=== PATIENT | female | born 1955 | race Caucasian/White ===

== ENCOUNTER 2020-09-23 11:18 | Outpatient (CLI) | payer MEDICARE, SELFPAY ==
--- NOTE | 2020-09-23 11:32 | FL_ITS ---
WS: [id number] MODIFIED BARIUM SWALLOW HISTORY: Other dysphagia FLUOROSCOPY TIME: 1.8 minutes. Modified barium swallow was performed by the speech pathologist. Fluoroscopy was provided with the pa tient in a lateral projection. Multiple food consistencies were provided. Patient swallowed all food consistencies without difficulty. No aspiration or laryngeal penetration. Liquids and food consistencies moved through the esophagus normally. Barium tablet was swallowed with out difficulty. FL/FL barium swallow modifd [id number] IMPRESSION: Unremarkable modified swallowing exam. Please see speech therapist report also for recommendations.
== END 2020-09-23 11:19 | disposition home or self-care (01) ==
LOC: RAD 11:22
PROVIDERS: PCP Family Medicine; Visit Provider Family Medicine
DX: R13.10 Dysphagia, unspecified (principal)
CPT/HCPCS: 74230; 92611

== ENCOUNTER 2020-09-26 13:08 | Outpatient (CLI) | payer MEDICARE, SELFPAY ==
--- NOTE | 2020-09-26 13:17 | XR_ITS ---
WS: [id number] Bone mineral density performed on a [employer], 09/26/2020 Clinical data: POST MENOPAUSAL, OSTEOPOROSIS Findings: The first 4 lumbar vertebral bodies demonstrated the bone mineral density of 1.007 g/cm2 for a young adult T score of -1.4. Measurement of the left hip reveals a bone mineral density of 0.826 g/cm2 with a young adult T score of -1.4. Measurement of the right hip reveals the bone mineral density of 0.791 g/cm2 for young adult T score of -1.7. XR/XR DEXA axial skeleton* [id number] Impression: Osteopenia of the lumbar spine and both hips.
== END 2020-09-26 13:09 | disposition home or self-care (01) ==
LOC: RADWPI 13:12
PROVIDERS: PCP Family Medicine; Visit Provider Family Medicine
DX: Z78.0 Asymptomatic menopausal state (principal); M81.0 Age-related osteoporosis without current pathological fracture; M85.89 Other specified disorders of bone density and structure, multiple sites
CPT/HCPCS: 77080

== ENCOUNTER → 2022-02-10 07:32 | Outpatient (BNVA) | payer MEDICARE, SELFPAY | PROVIDERS: PCP Family Medicine; Visit Provider Family Medicine | DX: Z00.00 Encounter for general adult medical examination without abnormal findings (principal); E78.5 Hyperlipidemia, unspecified | CPT/HCPCS: 80053; 80061; 85025 ==

== ENCOUNTER 2022-03-24 20:57 | Emergency (ER) | payer MEDICARE, SELFPAY ==
[2022-03-24 21:11] VITALS: BP 157/92; PULSE 85; RESP 16; TEMP 36.7; O2SAT 95; BMI 27.9
--- NOTE | 2022-03-24 21:27 | W.ED.ABDPA2 ---
HPI - Abdominal Pain General: Chief Complaint: Abdominal Pain Stated Complaint: dry heaving, stomach bloating Time Seen by Provider: 03/24/22 21:20 Source: patient Mode of arrival: ambulatory Limitations: no limitations History of Present Illness: 66-year-old female who states that she has been having abdominal pain along with nausea and diarrhea since Tuesday. States she had dry heaving she has had abdominal cramping states she does have some diffuse pain that is a cramping type pain she denies any worsening improving factors states she has had a decreased appetite. Associated Symptoms: Reports nausea; Denies chills, diarrhea, dysuria, fever(s) and vomiting Review of Systems Const: Denies: fever(s), chills, body aches or change in appetite Eyes: Denies: blurry vision or eye discomfort ENMT: Denies: throat pain or dental pain Card: Denies: chest pain Resp: Denies: dyspnea GI: Reports: abdominal pain and nausea; Denies: vomiting or diarrhea : Denies: dysuria Musc: Denies: neck pain or back pain Skin/Breast: Denies: rash Neuro: Denies: headache(s) Psych: Denies: depression Esequiel/Lymph: Denies: easy bruising All/Imm: Denies: urticaria Physical Exam Const: COMMON NORMALS: patient oriented x3 and healthy appearing HENMT: COMMON NORMALS: normocephalic and atraumatic HEAD & SCALP: normocephalic and atraumatic Eye: COMMON NORMALS: Equal, round and reactive pupils present and EOMs intact bilaterally PUPIL: Yes Equal, round and reactive pupils present Neck/C-Spine: COMMON NORMALS: full ROM and supple Chest: COMMONS NORMALS: normal inspection of the chest and normal palpation of entire chest wall Resp: COMMON NORMALS: normal respiratory effort, No retractions, No use of accessory muscles and clear to auscultation bilaterally AUSCULTATION: clear to auscultation bilaterally Cardio: COMMON NORMALS: regular rate, regular rhythm and No murmurs present (Cardio) RATE: regular rate RHYTHM: regular rhythm GI: COMMON NORMALS: Normal to inspection, nondistended, normoactive bowel sounds present, Soft to palpation, non-tender and no masses PALPATION: Yes Soft to palpation Extremity: COMMON NORMALS: normal to inspection and full ROM Neuro: COMMON NORMALS: patient oriented x3, moves all extremities and no focal motor deficits Psych: COMMON NORMALS: mental status grossly normal, Normal thought process present and cooperative THOUGHT PROCESS: Normal thought process present Skin: COMMON NORMALS: no rashes or lesions noted and no wounds GENERAL SKIN EXAM: no rashes or lesions noted Course Vital Signs: Vital signs: Vital Signs Temperature 98.1 F 03/24/22 21:11 Pulse Rate 85 03/24/22 21:11 Respiratory Rate 20 H 03/24/22 21:56 Blood Pressure 157/92 03/24/22 21:11 Pulse Oximetry 95 03/24/22 21:56 Oxygen Delivery Me thod 03/24/22 21:11 MDM - Abdominal Pain Medical Decision Making Patient presents with abdominal pain CT shows a possible gastritis lipase is very mildly elevated her's symptoms not consistent with a pancreatitis she is doing liquid diet over the next [address] her on Protonix along with Zofran she is to follow-up with PCP and return if worsening she understands agrees to plan. Lab Data : 03/24/22 21:28 03/24/22 21:28 Labs/Radiology: Radiology Impressions Abdomen/Pelvis CT 03/24/22 22:04 IMPRESSION: 1. The empty stomach demonstrates mild mural thickening. This may represent underdistention versus mild gastritis. 2. No evidence of bowel obstruction. 3. No acute abnormality of the solid organs demonstrated. Laboratory Results WBC 8.8 10^3/uL (4.0-10.0) 03/24/22 21: RBC 5.14 10^6/uL (4.1-5.3) 03/24/22 21: Hgb 15.1 g/dL (11.5-15.3) 03/24/22 21: Hct 44.0 % (37.0-47.0) 03/24/22 21: MCV 85.6 fl (81-99) 03/24/22 21: MCH 29.4 pg (28.0-34.0) 03/24/22 21: MCHC 34.3 g/dL (30.0-36.0) 03/24/22 21: RDW 12.5 % (12.1-15.1) 03/24/22: Plt Count 300 10^3/cmm (130-400) 03/24/22 21: MPV 9.8 fL (7.4-10.4) 03/24/22 21: Neut % (Auto) 72.5 % 03/24/22 21: Lymph % (Auto) 18.9 % 03/24/22 21: [place] % (Auto) 8.0 % 03/24/22 21: Eos % (Auto) 0.2 % 03/24/22 21: Baso % (Auto) 0.2 % 03/24/22 21: Neut # (Auto) 6.40 10^3/uL (1.8-7.7) 03/24/22: Lymph # (Auto) 1.7 10^3/uL (0.8-4.8) 03/24/22: [place] # (Auto) 0.7 10^3/uL (0.2-0.9) 03/24/22 21: Eos # (Auto) 0.0 10^3/uL (0.0-0.8) 03/24/22: Baso # (Auto) 0.0 10^3/uL (0.0-0.1) 03/24/22 21: Nucleated RBC % (auto) 0 % 03/24/22: Nucleated RBCs # 0.0 /100WBC 03/24/22 21: Sodium 138 mmol/L (136-145) 03/24/22 21: Potassium 4.1 mmol/L (3.5-5.1) 03/24/22: Chloride 99 mmol/L (98-107) 03/24/22 21: Carbon Dioxide 26 mmol/L (22-29) 03/24/22 21: Anion Gap 17.1 (5-19) 03/24/22 21: BUN 12 mg/dL (8-23) 03/24/22 21: Creatinine 0.7 mg/dL (0.5-0.9) 03/24/22 21: GFR Calculation 83.5 mL/min (90-130) L 03/24/22 21: Glucose 138 mg/dL (65-115) H 03/24/22 21: Calculated Osmolality 288 mOsm/kg (285-295) 03/24/22 21: Calcium 10.0 mg/dL (8.5-10.5) 03/24/22 21:28 Total Bilirubin 0.4 mg/dL (0.15-1.2) 03/24/22 21:28 AST 20 U/L (0-32) 03/24/22 21:28 ALT 17 U/L (0-33) 03/24/22 21:28 Alkaline Phosphatase 144 U/L (35-105) H 03/24/22 21:28 Total Protein 7.3 g/dL (6.6-8.7) 03/24/22 21: Albumin 4.6 g/dL (3.5-5.2) 03/24/22 21: Globulin 2.7 g/dL (1.3-4.6) 03/24/22 21: Lipase 215 U/L (13-60) H 03/24/22 21:28 Urine Color Yellow (Yellow) 03/24/22 23:23 Urine Appearance Clear (CLEAR) 03/24/22 23:23 Urine pH 5.5 (5-7) 03/24/22 23:23 Ur Specific [place] 1.010 (1.005-1.030) 03/24/22 23:23 Urine Protein Negative (Negative) 03/24/22 23:23 Urine Glucose (UA) Negative (Normal) 03/24/22 23:23 Urine Ketones 1+ (Negative) A 03/24/22 23:23 Urine Blood Trace-intact (Negative) A 03/24/22 23:23 Urine Nitrate Negative 03/24/22 23:23 Urine Bilirubin Negative (Negative) 03/24/22 23:23 Urine Urobilinogen 0.2 mg/dL (Negative) 03/24/22 23:23 Ur Leukocyte Esterase Negative 03/24/22 23:23 Amorphous Sediment Not Reportable 03/24/22 23:23 Discharge Plan Discharge Patient Disposition: Home Clinical Impression: Abdominal pain Condition: Stable Prescriptions: New Protonix 40 mg tablet,delayed release (DR/EC) 40 mg PO DAILY Qty: 60 0RF ondansetron 4 mg tablet,disintegrating 4 mg PO Q6H PRN (Reason: nausea and vomiting) Qty: 14 0RF No Action fluoxetine 40 mg capsule 40 mg PO DAILY Qty: 30 12RF meloxicam 15 mg tablet 15 mg PO ONCE Discharge Orders: Discharge ED (Routine); Ordered 03/24/22 Ordered By: Loulou Johnson Referrals: Negro Ricketts MD [Primary Care Provider] - 1-3 days Discharge Diet: Advance as tolerated Discharge Activity: Resume usual activity Patient Instructions: Abdominal Pain (ED) Coding Level of Care Code ED [employer] Ad[employer]er for Chg Fwd Exam Comprehensive
[2022-03-24 21:32] LABS: Basophils % 0.2 %; Eosinophils % 0.2 %; Hemoglobin 15.1 g/dL (11.5-15.3); Lymphocytes # 1.7 10^3/uL (0.8-4.8); Lymphocytes % 18.9 %; Mean Corpuscular HGB Conc 34.3 g/dL (30.0-36.0); Mean Corpuscular Hemoglobin 29.4 pg (28.0-34.0); Mean Corpuscular Volume 85.6 fl (81-99); Mean Platelet Volume 9.8 fL (7.4-10.4); Monocytes # 0.7 10^3/uL (0.2-0.9); Neutrophils % 72.5 %; Nucleated Red Blood Cells % 0 %; Platelet Count 300 10^3/cmm (130-400); Red Blood Count 5.14 10^6/uL (4.1-5.3); Red Cell Distribution Width 12.5 % (12.1-15.1); White Blood Count 8.8 10^3/uL (4.0-10.0)
[2022-03-24 21:55] LABS: Alanine Aminotransferase 17 U/L (0-33); Albumin Level 4.6 g/dL (3.5-5.2); Alkaline Phosphatase 144 U/L (35-105); Anion Gap 17.1 (5-19); Aspartate Amino Transferase 20 U/L (0-32); Blood Urea Nitrogen 12 mg/dL (8-23); Carbon Dioxide 26 mmol/L (22-29); Chloride 99 mmol/L (98-107); Globulin 2.7 g/dL (1.3-4.6); Glomerular Filtration Rate 83.5 mL/min (90-130); Glucose 138 mg/dL (65-115); Lipase 215 U/L (13-60); Osmolality Calculated 288 mOsm/kg (285-295); Potassium 4.1 mmol/L (3.5-5.1); Sodium 138 mmol/L (136-145); Total Bilirubin 0.4 mg/dL (0.15-1.2); Total Protein 7.3 g/dL (6.6-8.7)
[2022-03-24] MEDS: sodium chloride 0.9% 1,000 ML 999 ML IV (21:55)
[2022-03-24 21:56] VITALS: RESP 20; O2SAT 95
[2022-03-24] MEDS: ondansetron 2 mg/ML SDV 2 mL 4 MG IVP (21:56)
[2022-03-24] MEDS: HYDROmorphone 1 mg/mL INJ 1 mL 0.5 MG IVP (21:56)
[2022-03-24 22:00] VITALS: BP 154/93; PULSE 84; RESP 19; O2SAT 91
--- NOTE | 2022-03-24 22:04 | CTR_ITS ---
PROCEDURE INFORMATION: Exam: CT Abdomen And Pelvis With Contrast Exam date and time: 03/24/2022 10:28 PM Age: 66 years old Clinical indication: Vomiting; Abdominal pain; Generalized; Prior surgery; Surgery date: 6+ months; Surgery type: Mastectomy, appendectomy, hysterectomy; Patient HX: Diarrhea, dry heaves, abd pain. Symptoms worse at night TECHNIQUE: Imaging protocol: Computed tomography of the abdomen and pelvis with contrast. Radiation optimization: All CT scans at this facility use at least one of these dose optimization techniques: automated exposure control; mA and/or kV adjustment per patient size (includes targeted exams where dose is matched to clinical indication); or iterative reconstruction. Contrast material: OMNI 350; Contrast volume: 80 ml; Contrast route: INTRAVENOUS (IV); COMPARISON: No relevant prior studies available. RADIATION DOSE METRICS: Total DLP (mGy-cm): 389.04 FINDINGS: Lungs: The lung bases appear unremarkable. Diaphragm: There is a small hiatal hernia present. Liver: Multiple less than 10 mm simple appearing hepatic cysts. No acute hepatic abnormality. Gallbladder and bile ducts: No calcified gallstones in the gallbladder. No gallbladder wall thickening. No pericholecystic fluid. No biliary dilatation. Pancreas: Unremarkable. No ductal dilation. Spleen: There are a few punctate calcified granulomas in the spleen. No acute splenic abnormality. Adrenal glands: The adrenal glands appear within normal limits. Kidneys and ureters: The kidneys are normal in morphology. No hydronephrosis. No solid mass. Stomach and bowel: The empty stomach demonstrates mild mural thickening. This may represent underdistention versus mild gastritis. The small bowel is unremarkable as demonstrated. No small bowel obstruction Impression. No acute abnormality/inflammatory change of the colon. Appendix: No evidence of appendicitis. Intraperitoneal space: No pneumoperitoneum. No significant fluid collection. Vasculature: Mild atherosclerosis of the aorta. No abdominal aortic aneurysm. Lymph nodes: No pathologically enlarged lymph nodes. Urinary bladder: The urinary bladder is unremarkable in appearance. Reproductive: The uterus is not visualized, consistent with hysterectomy. Bones/joints: Unremarkable. No acute osseous abnormality. Soft tissues: Bilateral breast implants are partially demonstrated. No complication identified. CT/CT abdomen pelvis w con* [id number] IMPRESSION: 1. The empty stomach demonstrates mild mural thickening. This may represent underdistention versus mild gastritis. 2. No evidence of bowel obstruction. 3. No acute abnormality of the solid organs demonstrated.
[2022-03-24] MEDS: iohexol 350 mg/mL 100 mL Btl IV (22:22)
[2022-03-24 22:39] VITALS: BP 144/67; PULSE 89; RESP 17; O2SAT 93
[2022-03-24 23:00] VITALS: BP 134/75; PULSE 81; RESP 18; O2SAT 91
[2022-03-24 23:30] VITALS: BP 144/83; PULSE 73; RESP 21; O2SAT 94
[2022-03-24 23:32] LABS: Bilirubin Urine Negative (Negative); Blood Urine Trace-intact (Negative); Glucose Urine UA Negative (Normal); Ketones Urine 1+ (Negative); Leukocyte Esterase Urine Negative; Nitrate Urine Negative; Protein Urine Negative (Negative); Urine Appearance Clear (CLEAR); Urine Color Yellow (Yellow); Urobilinogen Urine 0.2 mg/dL (Negative); pH Urine 5.5 (5-7)
[2022-03-24 23:34] LABS: Add Urine Microscopic? YES
[2022-03-24 23:42] LABS: Add Urine Culture? No; RBC Urine 0-4 /hpf (0-2)
[2022-03-24] MEDS: ondansetron 4 MG Tablet PO (23:50)
== END 2022-03-25 00:10 | disposition home or self-care (01) ==
PROVIDERS: Emergency Provider Emergency Medicine; PCP Family Medicine
DX: R10.9 Unspecified abdominal pain (principal)
CPT/HCPCS: 74177; 80053; 81001; 83690; 85025; 96361; 96374; 96375; 99285; J1170; J2405; J7030; Q0162; Q9967

== ENCOUNTER → 2023-01-05 08:26 | Outpatient (BNVA) | payer MEDICARE, SELFPAY | PROVIDERS: PCP Family Medicine; Visit Provider Family Medicine | DX: Z00.00 Encounter for general adult medical examination without abnormal findings (principal); E78.5 Hyperlipidemia, unspecified | CPT/HCPCS: 80053; 80061; 85025 ==

== ENCOUNTER 2023-01-14 13:08 | Outpatient (CLI) | payer MEDICARE, SELFPAY ==
--- NOTE | 2023-01-14 13:30 | XR_ITS ---
WS: [id number] SCREENING DEXA SCAN [place] CLINICAL INFORMATION: screening COMPARISON: September 26, 2020 FINDINGS: The L1-L4 bone mineral density measures 1.095 g/cm2. This corresponds to a T score score of -0.7 and Z score of 1.2. Left femoral neck bone mineral density measures 0.788 g/cm2. This corresponds to a T score of -1.7 an d Z score of -0.2. Right femoral neck bone mineral density measures 0.771 g/cm2. This corresponds to a T score -1.9of an d Z score of -0.3. Mean femoral neck bone mineral density measures 0.780 g/cm2. This corresponds to a T score of -1.8 an d Z score of -0.3. XR/XR DEXA axial skeleton* [id number] IMPRESSION: Normal bone mineralization lumbar spine. Osteopenia femoral necks. Patient's FRAX calculated 10 year probability for major osteoporotic fracture i s 11.2 % and osteoporotic hip fracture is 1.9%. Bone mineralization lumbar spine increased 8.7% since 2020 Bone mineralization femoral necks decreased -3.5% since 2020.
== END 2023-01-14 13:09 | disposition home or self-care (01) ==
PROVIDERS: PCP Family Medicine; Visit Provider Family Medicine
DX: Z00.00 Encounter for general adult medical examination without abnormal findings (principal)
CPT/HCPCS: 77080

== ENCOUNTER → 2023-01-25 13:39 | Outpatient (BNVA) | payer MEDICARE, SELFPAY | PROVIDERS: PCP Family Medicine; Visit Provider Clinical Nurse Specialist Adult Health | DX: K52.9 Noninfective gastroenteritis and colitis, unspecified (principal) | CPT/HCPCS: 80048; 83735; 85025; 85651; 86140 ==

== ENCOUNTER → 2023-12-08 08:01 | Outpatient (BNVA) | payer MEDICARE, SELFPAY | PROVIDERS: PCP Family Medicine; Visit Provider Family Medicine | DX: Z85.3 Personal history of malignant neoplasm of breast (principal); E78.5 Hyperlipidemia, unspecified; E11.9 Type 2 diabetes mellitus without complications | CPT/HCPCS: 80053; 80061; 83690; 85025 ==

== ENCOUNTER → 2024-02-28 09:59 | Outpatient (BNVA) | payer MEDICARE, SELFPAY | PROVIDERS: PCP Family Medicine; Referring Provider Family Medicine; Visit Provider Nurse Practitioner Family | DX: L82.0 Inflamed seborrheic keratosis (principal); B07.8 Other viral warts; S50.902A Unspecified superficial injury of left elbow, initial encounter; X58.XXXA Exposure to other specified factors, initial encounter; L57.8 Other skin changes due to chronic exposure to nonionizing radiation; D22.39 Melanocytic nevi of other parts of face; L81.4 Other melanin hyperpigmentation | CPT/HCPCS: 17110; 99203 ==

== ENCOUNTER → 2024-06-04 11:16 | Outpatient (BNVA) | payer MEDICARE, OTHER, SELFPAY | PROVIDERS: PCP Family Medicine | DX: B34.9 Viral infection, unspecified (principal); J00 Acute nasopharyngitis [common cold]; J40 Bronchitis, not specified as acute or chronic | CPT/HCPCS: 87400; 87426 ==

== ENCOUNTER → 2025-01-10 07:56 | Outpatient (BNVA) | payer MEDICARE, OTHER, SELFPAY | PROVIDERS: PCP Family Medicine; Visit Provider Family Medicine | DX: Z00.00 Encounter for general adult medical examination without abnormal findings (principal); E78.5 Hyperlipidemia, unspecified; Z85.3 Personal history of malignant neoplasm of breast | CPT/HCPCS: 80053; 80061; 83690; 85025 ==

== ENCOUNTER → 2025-01-24 09:43 | Outpatient (BNVA) | payer MEDICARE, OTHER, SELFPAY | PROVIDERS: PCP Family Medicine; Visit Provider Family Medicine | DX: E78.5 Hyperlipidemia, unspecified (principal); R53.83 Other fatigue | CPT/HCPCS: 82607; 84443; 86140 ==

== ENCOUNTER 2025-01-28 14:58 | Outpatient (CLI) | payer MEDICARE, OTHER, SELFPAY ==
--- NOTE | 2025-01-28 15:00 | XR_ITS ---
WS: [id number] DEXA (DUAL ENERGY X-RAY ABSORPTIOMETRY) Bone mineral density was performed using a Relevvant machine. HISTORY: screening COMPARISON: 01/14/2023 Lumbar spine BMD (L1-L4): 1.051 g/cm2 T score: -1.1 Z score: 1.0 Total hip BMD: Left: 0.777 g/cm2. T score: -1.8 Z score: 0.0 Right: 0.772 g/cm2. T score: -1.9 Z score: -0.1 10 year probability of a major osteoporotic fracture is 11.5%. Compared to the prior study from 01/14/2023. Lumbar spine bone mineral density has decreased by 4.0%. Bilateral hips bone mineral density has decreased by 0.6%. XR/XR DEXA axial skeleton* [id number] IMPRESSION: OSTEOPENIA based upon the WHO classification for females. Significant decrease in bone mineral density within the lumbar spine since the prior study. No significant change of bone mineral density in the hips.
== END 2025-01-28 14:59 | disposition home or self-care (01) ==
LOC: RAD 14:59
PROVIDERS: PCP Family Medicine; Visit Provider Family Medicine
DX: Z13.820 Encounter for screening for osteoporosis (principal); Z00.00 Encounter for general adult medical examination without abnormal findings; M85.89 Other specified disorders of bone density and structure, multiple sites
CPT/HCPCS: 77080

== ENCOUNTER 2025-01-29 09:23 | Outpatient (CLI) | payer MEDICARE, OTHER, SELFPAY ==
[2025-01-29] MEDS: iohexol 350 mg/mL 500 mL Btl (per mL) PO (10:02)
--- NOTE | 2025-01-29 10:15 | CT_ITS ---
WS: [id number] CT ABDOMEN AND PELVIS WITH CONTRAST HISTORY: elevated Lipase/ abd pain TECHNIQUE: Imaging performed of the abdomen and pelvis with IV contrast. Single phase imaging of the abdomen. Coronal and sagittal reformats are submitted. All CT scans at [facility] use at least one of these dose optimization techniques: automated exposure control; mA and/or kV adjustment per patient size (includes targeted exams where dose is matched to clinical indication); or iterative reconstruction. IV CONTRAST: Omnipaque 350; 100 mL IV. Oral contrast: Yes. DLP: 298.36 mGy.cm COMPARISON: 03/24/2022, 10/03/2009 Lower thorax: Inferior aspect of bilateral breast implants noted. Lung bases are clear. Normal size heart. Heart is normal size. Small hiatal hernia. Liver/biliary system: Normal size liver. Too small to characterize hypodensities in the liver are stable since 03/24/2022. Normal portal vein. No intrahepatic duct dilatation. Gallbladder: Normal. No gallstones or wall thickening. No pericholecystic fluid. Pancreas: Normal size pancreas and pancreatic duct. No adjacent inflammation. Spleen: Normal size spleen. No mass or infarct. Adrenal glands: Normal. Right kidney: Normal. Left kidney: Normal. Aorta: Mild atherosclerosis with no aneurysm. Lymphadenopathy: None. Free fluid: None. GI tract: Normally distended stomach. No small bowel obstruction. Appendix is not definitely identified. Mild diffuse constipation. No obstructive pattern. No significant diverticular disease. Abdominal wall: Fat containing umbilical hernia. Pelvis: No free fluid or adenopathy within the pelvis. Prior hysterectomy. Negative urinary bladder. Bones: Moderate degenerative disc disease at T8-9 and T12-L1. CT/CT abdomen pelvis w con* [id number] IMPRESSION: 1. Normal pancreas CT. There is no inflammation surrounding the pancreas. No m ass or enlargement. Normal pancreatic duct. 2. Stable hepatic cysts. 3. No ascites or adenopathy. 4. Small hiatal hernia. 5. Moderate constipation.
[2025-01-29] MEDS: iohexol 350 mg/mL 500 mL Btl (per mL) IV (10:41)
== END 2025-01-29 09:24 | disposition home or self-care (01) ==
LOC: RAD 09:23
PROVIDERS: PCP Family Medicine; Visit Provider Family Medicine
DX: R74.8 Abnormal levels of other serum enzymes (principal); R10.9 Unspecified abdominal pain; R53.83 Other fatigue; K59.00 Constipation, unspecified; K42.9 Umbilical hernia without obstruction or gangrene; K76.89 Other specified diseases of liver
CPT/HCPCS: 74177